=== PATIENT | male | born 1945 | race Caucasian/White ===

== ENCOUNTER 2022-10-19 12:14 | Day surgery (SDC) | payer MEDICARE, OTHER, SELFPAY ==
[2022-10-17 13:23] VITALS: BMI 28.2
[2022-10-19 12:48] VITALS: BP 123/65; PULSE 51; RESP 14; TEMP 36.4; O2SAT 96; BMI 28.2
--- NOTE | 2022-10-19 12:55 | P.HP_ITS ---
History of Present Illness History of Present Illness Date Patient Seen: 10/19/22 Time Patient Seen: 12:55 Chief complaint: Right Carpal tunnel release 10/19 Narrative: Patient with numbness involving mainly the 1st 3 fingers of the right hand. [facility] Medical History History of angina History of heart disease History of inguinal hernia History of umbilical hernia Surgical History History of appendectomy History of heart bypass surgery History of inguinal hernia repair History of percutaneous transluminal coronary angioplasty History of repair of rotator cuff History of umbilical hernia repair Social History household members: none Smoking Status: Never smoker alcohol intake: never Meds Home Medications and Allergies Home Medications Medication Instructions Recorded Confirmed Type aspirin 81 mg tablet,delayed 81 mg PO DAILY 10/17/22 10/19/22 History release carvedilol 6.25 mg tablet 6.25 mg PO BID 10/17/22 10/19/22 History docusate sodium 100 mg capsule 100 mg PO DAILY 10/17/22 10/19/22 History (Stool Softener) famotidine 20 mg tablet 20 mg PO DAILY 10/17/22 10/19/22 History multivitamin 1 tab PO DAILY 10/17/22 10/19/22 History psyllium 1 tbsp PO DAILY 10/17/22 10/19/22 History rosuvastatin 40 mg tablet 40 mg PO DAILY 10/17/22 10/19/22 History tamsulosin 0.4 mg capsule 0.4 mg PO DAILY 10/17/22 10/19/22 History Allergies Allergy/AdvReac Type Severity Reaction Status Date / Time oxycodone AdvReac Intermediate Nausea Verified 10/19/22 12:45 Exam Narrative Exam Narrative: On physical exam, no swelling or deformities to the hand. No sign of any significant thenar atrophy or intrinsic wasting. Full range of motion of the wrist and fingers. Positive Tinel's, thumb compression, Phalen's test. No sign of any ulnar neuropathy or cervical radiculopathy. Assessment & Plan Assessment & Plan narrative: 77-year-old gentleman with physical exam findings as well as EMG findings positive for carpal tunnel. Patient is interested in proceeding with a carpal tunnel release. All his questions and concerns were answered to his full satisfaction. The risk, benefits, alternatives, possible complications, operative course, and postop outcomes were discussed. Complications including but not limiting to bleeding, infection, fracture, nerve injury, continued pain postoperatively or instability postoperatively were discussed in detail. Medical complications including but not limited to deep venous thrombosis event, anesthesia complications with excessive bleeding, vascular events or cardiac events and other possible complications were discussed in detail. Need for postoperative rehabilitation and anticipated hospital stay and clinical course were discussed in detail. Patient acknowledges understanding and elects to proceed with surgery.
--- NOTE | 2022-10-19 12:56 | PM.PREOP ---
Pre-operative Note Interval Note History & Physical reviewed/Exam performed by Physician: Yes Changes to H&P: No
[2022-10-19] MEDS: LACTATED RINGERS 1,000 ML 42 ML IV (13:29)
[2022-10-19] MEDS: CEFAZOLIN 2 GM/100 ML PREMIX 100 ML IV (14:00)
[2022-10-19] MEDS: BUPIVACAINE 0.5% (PF) 30 ML, EPINEPHrine 0.15 MG INJ (14:09)
--- NOTE | 2022-10-19 14:09 | SUR.OPER ---
Supine on padded OR bed, head on pillow, arms secured on padded arm boards at <90 degrees abduction, legs uncrossed, safety belt at thigh, tape over blanket over lower legs.
--- NOTE | 2022-10-19 14:24 | PM.OP.1 ---
Operative Date/Time/Diagnoses Date of procedure: 10/19/22 Time of procedure: 14:00 Pre-op diagnosis: Right carpal tunnel Post-op diagnosis: same Procedure & Clinicians Procedure: Right carpal tunnel release Same procedure as scheduled: Yes Indications: Right carpal tunnel Surgeon: Rahul Alejandro Click Yes if Unassisted: Yes Anesthesia Type: Peripheral nerve block Operative Notes Findings: Compression of the median nerve at the carpal tunnel Closure Type: primary Estimated Blood Loss (mL): 0 Tourniquet time (min): 20 Procedure in detail: On date of service, the patient was met in the holding area. Patients operative site was signed and witnessed by the OR staff. The surgery was once again discussed with the patient, and any remaining questions they had were answered fully. Patient was taken back to the operating theater and placed on the operating table in a supine position. Great care was taken to ensure that all bony prominences were carefully padded. A well-padded tourniquet was placed up along the upper extremity. A timeout was performed to verify patient's name, procedure, and operative site. The arm was then prepped and draped in the normal sterile fashion. A 15 blade was used to incise through skin In the center of the palm. Pickups and tenotomy scissors were used to dissect down until the palmar fascia was visualized. The palmar fascia was then sharply incised using a 15 blade. This gave us good visualization of the carpal ligament. A small opening was made into the carpal ligament, and a curved hemostat was placed into that opening. A 15 blade was then used to sharply incise the carpal ligament with the structures beneath being protected by the hemostat. Pickups and Metzenbaum scissors were used to complete the decompression both distally and proximally. This provided a complete decompression of the median nerve. The wound was then irrigated and closed with nylon. The hand was then cleaned, dried, and dressed. Patient was taken to the PACU in stable condition. Complications: none Post-operative Condition: stable Disposition: PACU Plan for aftercare: Patient will follow our postoperative protocol for carpal tunnel release
[2022-10-19 14:26] VITALS: BP 138/81; PULSE 61; RESP 12; TEMP 36.2; O2SAT 95
[2022-10-19 14:32] VITALS: BP 116/89; PULSE 55; RESP 10; O2SAT 94
[2022-10-19] MEDS: ONDANSETRON 4 MG/2 ML INJ IV (14:34)
[2022-10-19 14:36] VITALS: BP 115/70; PULSE 55; RESP 14; O2SAT 92
[2022-10-19 14:37] VITALS: BP 119/68; PULSE 54; RESP 12; O2SAT 92
[2022-10-19 14:45] VITALS: BP 115/70; PULSE 53; RESP 12; TEMP 36.7; O2SAT 94
== END 2022-10-19 15:05 | disposition home or self-care (01) ==
PROVIDERS: Family Provider Family Medicine; PCP Internal Medicine; Referring Provider Orthopaedic Surgery; Visit Provider Orthopaedic Surgery
PROC: (CPT 64721; principal; 2022-10-19 13:45)
DX: G56.01 Carpal tunnel syndrome, right upper limb (principal)
CPT/HCPCS: 64721; J0171; J0690; J2405

== ENCOUNTER → 2023-11-06 11:40 | Outpatient (CLI) | payer MEDICARE, OTHER, SELFPAY ==
[2023-11-06 13:22] LABS: Hemoglobin 14.5 g/dL (13.5-17.5); Mean Corpuscular HGB Conc 33.6 % (30-36); Mean Corpuscular Hemoglobin 31.1 PG (26-34); Mean Corpuscular Volume 92.4 fL (80-100); Platelet Count 241 X10^3/uL (150-400); Red Blood Cell Count 4.65 X10^6/uL (4.5-5.9); Red Cell Distribution Width 13.5 % (11.6-14.8); White Blood Cell Count 7.1 X10^3/uL (4.5-11.0)
[2023-11-06 13:53] LABS: BUN Creatinine Ratio 17.8 (6-22); Blood Urea Nitrogen 13 mg/dL (9-20); Carbon Dioxide 28 mmol/L (22-32); Chloride 103 mmol/L (98-107); Cholesterol 110 mg/dL (140-199); Estimated Glomerular Filt Rate > 60 mL/min (>60); HEMOLYSIS < 15 (0-50); Triglycerides 89 mg/dL (35-150)
[2023-11-06 13:54] LABS: Calcium 9.4 mg/dL (8.4-10.2); Glucose 96 mg/dL (80-110); HDL Cholesterol 48 mg/dL (40-60); LDL Cholesterol Calculated 44 mg/dL (<100); Potassium 4.5 mmol/L (3.4-5.1); Sodium 137 mmol/L (137-145)
== END ==
LOC: LAB 11:41
PROVIDERS: Family Provider Family Medicine; PCP Internal Medicine; Referring Provider Internal Medicine Cardiovascular Disease; Visit Provider Internal Medicine Cardiovascular Disease
DX: I25.10 Atherosclerotic heart disease of native coronary artery without angina pectoris (principal); E78.5 Hyperlipidemia, unspecified
CPT/HCPCS: 36415; 80048; 80061; 85027